=== PATIENT | male | born 1965 | race Two or more races ===

== ENCOUNTER 2024-10-23 13:53 | Emergency (ER) | payer OTHER, SELFPAY ==
[2024-10-23 14:04] VITALS: BP 131/82; PULSE 70; RESP 16; TEMP 36.5; O2SAT 100
--- NOTE | 2024-10-23 14:14 | XR_ITS ---
Examination: Knee, right , 3 views Technique: Knee AP, lateral, oblique 3 views Date and time of exam: October 23, 2024 1417 hours INDICATIONS: Right knee pain beginning 2 weeks ago. FINDINGS: Mild narrowing medial joint space No fracture or dislocation No ossified joint bodies IMPRESSION: Mild narrowing medial joint space No fracture
--- NOTE | 2024-10-23 14:31 | PD.EDLOWEX ---
Lower Extremity Injury RME/HPI General Chief Complaint: Extremity Injury, Lower Stated Complaint: R) KNEE SWOLLEN/PAINFUL, [facility] Time Seen by Provider: 10/23/24 14:03 Source: patient Arrival date/time: 10/23/24 13:53 59-year-old male who presents to the emergency room with a chief complaint of tenderness and swelling to the right knee x 1 week. Patient denies trauma. Mode of arrival: ambulatory Limitations: no limitations Related Data Previous Rx's ?Medication ?Instructions ?Recorded atorvastatin 10 mg tablet 10 mg PO QPM #30 tabs 05/26/21 furosemide 40 mg tablet (Lasix) 40 mg PO QDAY #30 tabs 05/26/21 carvedilol 6.25 mg tablet 6.25 mg PO BID #60 tabs 08/12/21 hydralazine 10 mg tablet 10 mg PO BID #60 tabs 08/12/21 multivitamin-iron 9 mg-folic acid 1 tab PO QDAY #30 tabs 08/12/21 400 mcg-calcium and minerals tablet (Thera M Plus (ferrous fumarate)) amlodipine 10 mg tablet 10 mg PO QDAY #30 tabs 08/13/21 furosemide 40 mg tablet (Lasix) 40 mg PO QAM #30 tabs 08/13/21 potassium chloride 8 mEq 8 meq PO Q OTHER DAY #30 tabs 08/13/21 tablet,extended release hydrocodone 5 mg-acetaminophen 325 1 tab PO Q8H PRN pain #10 tabs 10/01/21 mg tablet prednisone 20 mg tablet See Taper PO BID #14 tabs 10/01/21 ondansetron 4 mg disintegrating 4 mg PO Q8H #10 tabs 03/21/23 tablet potassium chloride 8 mEq 8 meq PO QDAY #7 tabs 03/21/23 tablet,extended release hydrocodone 5 mg-acetaminophen 325 1 tab PO BID PRN pain #8 tabs 10/15/23 mg tablet Allergies Allergy/AdvReac Type Severity Reaction Status Date / Time No Known Allergies Allergy Verified 10/23/24 13:56 Review of Systems Review of Systems Systems Reviewed: All systems reviewed, normal except as documented Constitutional Constitutional: Reports system reviewed and no additional complaints, except as documented, Denies fatigue, Denies fever(s), Denies headache(s) and Denies weakness Eyes Eyes: Reports system reviewed and no additional complaints, except as documented, Denies blurry vision and Denies change in vision ENT Ears, Nose, Mouth, and Throat: Reports system reviewed and no additional complaints, except as documented, Denies otalgia, Denies headache(s), Denies nasal congestion, Denies throat swelling and Denies vertigo Cardiovascular Cardiovascular: Reports system reviewed and no additional complaints, except as documented, Denies chest pain, Denies dyspnea and Denies dyspnea on exertion Respiratory Respiratory: Reports system reviewed and no additional complaints, except as documented, Denies chest congestion, Denies cough, Denies dyspnea, Denies dyspnea on exertion and Denies wheezing Gastrointestinal Gastrointestinal: Reports system reviewed and no additional complaints, except as documented, Denies abdominal pain, Denies cramping, Denies nausea and Denies vomiting Genitourinary Genitourinary: Reports system reviewed and no additional complaints, except as documented, Denies dysuria and Denies hematuria Musculoskeletal Musculoskeletal: Reports system reviewed and no additional complaints, except as documented, Reports arthralgias, Denies back pain and Reports joint swelling Integumentary/Breasts Skin/Breast: Reports system reviewed and no additional complaints, except as documented and Denies wounds Neurologic Neurologic: Reports system reviewed and no additional complaints, except as documented, Denies confusion, Denies headache(s), Denies lack of coordination, Denies vertigo and Denies weakness Psychiatric Psychiatric: Reports system reviewed and no additional complaints, except as documented, Denies anxiety, Denies confusion, Denies depression, Denies paranoia, Denies suicidal ideation and Denies tactile hallucinations Endocrine Endocrine: Reports system reviewed and no additional complaints, except as documented and Denies fatigue Hematologic/Lymphatic Hematologic/Lymphatic: Reports system reviewed and no additional complaints, except as documented and Denies lymphadenopathy Allergic/Immunologic Allergic/Immunologic: Reports system reviewed and no additional complaints, except as documented, Denies throat swelling, Denies urticaria and Denies wheezing Past Medical History Past Medical History NEUROLOGIC: Negative Neurological Disorders CARDIAC: Positive Hypercholesterolemia, Congestive Heart Failure and Hypertension RESPIRATORY: Negative Chronic Obstructive Pulmonary Disease (COPD) GASTROINTESTINAL: Negative Gastrointestinal Disorders, Hepatitis or Colorectal Cancer GENITOURINARY: Negative Genitourinary Disorders, Renal Disease or Prostate Cancer REPRODUCTIVE: Negative Breast Cancer or Testicular Cancer MUSCULOSKELETAL: Negative Musculoskeletal Disorders, Bone Cancer or Carpal Tunnel Syndrome ENT: Negative Cataracts ENDOCRINE: Negative Endocrine Disorders, Diabetes Mellitus Type 1 or Diabetes Mellitus Type 2 HEMATOLOGIC: Negative Blood Disorders OTHER HISTORY: Negative Hospitalization, Autoimmune Disease, Down Syndrome, Developmental Delay, Shingles, Falls, Blood Transfusions, Blood Transfusion Reaction, Anesthesia Reactions, Organ Transplant, Chemotherapy, Radiation Therapy, Hyperbaric Therapy, MRSA, VRSA, Human Immunodeficiency Virus (HIV), Chicken Pox, Measles, Mumps, Rubella (Cypriot Measles), Pertussis, Clostridium Difficile, Cancer, Breast Cancer, Cervical Cancer, Colorectal Cancer, Lung Cancer, Ovarian Cancer, Prostate Cancer or Testicular Cancer Family History FAMILY HISTORY: Positive Family Cardiac Disorders Surgical History SURGICAL: Negative Ear Surgery, Tympanostomy Tube, Eye Surgery, Nose Surgery, Oral Surgery, Tonsillectomy, Adenoidectomy, Cochlear Implant, Corneal Transplant, Throat Surgery, Abdominal Surgery, Tracheostomy, Gastric Bypass Surgery, Gastrostomy, Bowel Surgery, Nephrectomy, Transurethral Resection, Joint Replacement, Amputation, Open Reduction Internal Fixation, Arthroscopy, Neurologic Surgery, Brain Shunt, Mastectomy, Lumpectomy, Hysterectomy, Tubal Ligation, Section, Vasectomy or Organ Transplant Social History SMOKING STATUS: Current every day smoker SUBSTANCE USE: does not use 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 ED Exam General Limitations: Present no limitations General appearance: Present alert and in no apparent distress Head Head exam: Present atraumatic Eye Eye exam: Present normal appearance, PERRL and EOMI ENT ENT exam: Present normal exam, normal oropharynx and mucous membranes moist Neck Neck exam: Present normal inspection, full ROM and trachea midline Chest Chest inspection: Present normal inspection and symmetric chest wall rise Respiratory Respiratory exam: Present normal lung sounds bilaterally Cardiovascular Cardiovascular exam: Present regular rate, normal rhythm and normal heart sounds Abdominal Exam Abdominal exam: Present soft and normal bowel sounds Extremities Exam Extremities exam: Present normal inspection and full ROM Expanded Lower Extremity Exam Hip/Pelvis exam: Present normal inspection Upper leg exam: Present normal inspection Knee exam: Present full ROM, tenderness, swelling and effusion; Absent erythema Gait: observed and normal Back Exam Back exam: Present normal inspection and full ROM Neurological Exam Neurological exam: Present alert, oriented X3 and CN II-XII intact Psychiatric Psychiatric exam: Present normal affect and normal mood Skin Skin exam: Present warm, dry, intact and normal color Course Quality Measures none Orders Category Date Time Status elida wrap [Splint / Immobilizer] STAT Care 10/23/24 14:43 Completed XR knee RT 3V Stat Exams 10/23/24 14:14 Completed Vital Signs Vital signs: Vital Signs Temperature 97.7 F 10/23/24 14:04 Pulse Rate 70 10/23/24 14:04 Respiratory Rate 16 10/23/24 14:04 Blood Pressure 131/82 H 10/23/24 14:04 Pulse Oximetry (%) 100 10/23/24 14:04 Oxygen Delivery Method Room Air 10/23/24 14:04 Extremity Injury, Lower MDM Narrative MDM Narrative:: 59-year-old male who presents to the emergency room with a chief complaint of tenderness and swelling to the right knee x 1 week. Patient denies trauma. Patient is hemodynamically stable and in no apparent distress Physical examination shows tenderness and swelling to the patient's right knee. Physical examination shows a full range of motion to the patient's knee. The patient has some mild swelling above the patella and the findings are consistent with bursitis. X-ray of the knee was negative for any acute fracture or dislocation Patient was discharged and educated to follow-up with primary care provider in the next 24 to 48 hours and return to the emergency room for any evidence of worsening signs or symptoms Patient data External records reviewed:: [facility] previous records Clinical information provided by:: patient Social determinants that could affect healthcare access:: none Patient has the following chronic illnesses:: No chronic illness How is presenting disease/condition affected by chronic disease/condition?: no chronic disease Evaluation data The following diagnostics were reviewed and interpreted by me:: lab results and radiology exam(s) Lab and/or radiology exams considered but not ordered:: Labs and radiology exams considered and ordered Interpretation Summary: X-ray right knee-no acute fracture or dislocation Medications / Prescriptions Medications or Prescriptions considered but not ordered:: No medication given Medication administrations:: No medication given Consultations Consultation(s) initiated? (list below): No Diagnosis Extremity Injury, Lower Differential Diagnosis: other (Right knee sprain/right knee fracture/right knee bursitis) Most likely diagnosis given after review of the tests above:: Right knee bursitis Admission Indicated Admission indicated?: not indicated Admission Request Was there a request for admission?: No Disposition Plan Disposition Plan: Discharge Discharge Attestation Discharge Attestation: The patient and all family members were given an opportunity to ask questions and understood the discharge instructions. Discharge instructions specifically effects, indications for sooner follow up or return to the emergency department, and the expected course of current diagnosis. Patient condition: Stable Discharge Plan Plan Patient Disposition: HOME (Self Care) Discharge Disposition comment: Stable Prescriptions/Referrals Prescriptions/Med Rec: No Action furosemide [Lasix] 40 mg tablet 40 mg PO QDAY Qty: 30 0RF atorvastatin 10 mg tablet 10 mg PO QPM Qty: 30 2RF prednisone 20 mg tablet See Taper PO BID Qty: 14 0RF Taper: Prednisone Taper 20 mg DAILY for 2 Days and 0 Hour 10 mg DAILY for 2 Days and 0 Hour 5 mg DAILY for 7 Days and 0 Hour hydrocodone-acetaminophen 5-325 mg tablet 1 tab PO Q8H MDD 3 PRN (Reason: pain) Qty: 10 0RF hydralazine 10 mg Tablet 10 mg PO BID Qty: 60 0RF Thera M Plus (ferrous fumarat) 9 mg iron-400 mcg Tablet 1 tab PO QDAY Qty: 30 0RF carvedilol 6.25 mg tablet 6.25 mg PO BID Qty: 60 0RF Rx Instructions: must administer with a meal/food amlodipine 10 mg tablet 10 mg PO QDAY Qty: 30 0RF furosemide [Lasix] 40 mg tablet 40 mg PO QAM Qty: 30 0RF potassium chloride 8 mEq tablet extended release 8 meq PO Q OTHER DAY Qty: 30 0RF Rx Instructions: Take Potassium tablet every other day potassium chloride 8 mEq tablet extended release 8 meq PO QDAY Qty: 7 0RF ondansetron 4 mg tablet,disintegrating 4 mg PO Q8H Qty: 10 0RF hydrocodone-acetaminophen 5-325 mg tablet 1 tab PO BID MDD 10 PRN (Reason: pain) Qty: 8 0RF Referrals: No Primary/Family,Physician [Primary Care Provider] - In 1 week Problem List Clinical Impression: Bursitis of right patella Patient/Caregiver Discharge Instructions Education Materials: How Your Knee Works, What Is Bursitis?, ED Bursitis Additional Instructions: Please follow-up with your primary care provider in the next 24 to 48 hours X-ray of your right knee was completed and was negative for any acute fracture or dislocation. Please rest, elevate, ice the extremity. 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 Anderson
== END 2024-10-23 15:04 | disposition home or self-care (01) ==
PROVIDERS: Emergency Provider Emergency Medicine
DX: M70.51 Other bursitis of knee, right knee (principal)
CPT/HCPCS: 73562; 99284